=== PATIENT | male | born 1985 | race Caucasian/White ===

== ENCOUNTER 2016-10-25 11:25 | Emergency (ER) | payer OTHER ==
[~2016-10-25] VITALS: Ht 172.7 cm; Wt 111.6 kg
[~2016-10-25 11:25] MED LIST: MOTRIN600 MG PO
[2016-10-25 11:28] VITALS: BP 154/95
[2016-10-25] MEDS ORDERED: ULTRAM50 MG PO (12:46)
[2016-10-25] MEDS ORDERED: NAPROSYN500 MG PO (12:46)
[2016-10-25] MEDS ORDERED: PREDNISONE10 MG PO (12:46)
== END 2016-10-25 12:56 | disposition home or self-care (01) ==
LOC: EME 11:25
DX: M54.16 Radiculopathy, lumbar region (principal)
CPT/HCPCS: 72100; 99281; 99284; J1885